=== PATIENT | female | born 1960 | race Caucasian/White ===

== ENCOUNTER 2021-09-07 13:24 | Emergency (ER) | payer BC ==
--- NOTE | 2021-09-07 14:25 | RAD REPORT ---
EXAM DESCRIPTION: RAD - Knee Left 3 View - 09/07/2021 2:17 pm CLINICAL HISTORY: PAIN COMPARISON: Knee Right 3 View dated 09/07/2021 FINDINGS: Moderate to large suprapatellar joint effusion is present. No acute fracture or dislocatio n is seen.
--- NOTE | 2021-09-07 14:28 | RAD REPORT ---
EXAM DESCRIPTION: RAD - Knee Right 3 View - 09/07/2021 2:18 pm CLINICAL HISTORY: PAIN COMPARISON: No comparisons FINDINGS: Small suprapatellar joint effusion is suspected. Mild arthritic changes without acute frac ture or dislocation evident.
--- NOTE | 2021-09-07 16:02 | ER ---
Nurse's Notes [facility] Name: Shwetha Hammonds Age: 61 yrs Sex: Female : 1960 Arrival Date: 09/07/2021 Time: 13:45 Bed 12 Private MD: Diagnosis: Unspecified internal derangement of left knee;Unspecified internal derangement of right knee Presentation: 09/07 13:55 Chief complaint: Patient states: climbing into truck Tuesday and heard pop to ll1 left knee, more painful to bend. Was trying to go to [facility] office but they told her to come here. Coronavirus screen: Vaccine status: Patient reports receiving the 2nd dose of the covid vaccine. At this time, the client does not indicate any symptoms associated with coronavirus-19. Ebola Screen: Patient negative for fever greater than or equal to 101.5 degrees Fahrenheit, and additional compatible Ebola Virus Disease symptoms Patient denies exposure to infectious person. Patient denies travel to an Ebola-affected area in the 21 days before illness onset. Initial Sepsis Screen: Does the patient meet any 2 criteria? No. Patient's initial sepsis screen is negative. Does the patient have a suspected source of infection? No. Patient's initial sepsis screen is negative. Risk Assessment: Do you want to hurt yourself or someone else? Patient reports no desire to harm self or others. 13:55 Method Of Arrival: Ambulatory ll1 13:55 Acuity: ENRIQUE 4 ll1 Triage Assessment: 13:58 General: Appears in no apparent distress. uncomfortable, slender, well groomed, well ll1 developed, Behavior is calm, cooperative, appropriate for age. Pain: Complains of pain in right and left knee. Historical: - Allergies: 13:57 PENICILLINS; ll1 13:57 Sulfa (Sulfonamide Antibiotics); ll1 13:57 Lidocaine; ll1 13:57 Iodine; ll1 - PMHx: 13:58 Hypertensive disorder; Hypercholesterolemia; Arthritis; ll1 - Immunization history:: Adult Immunizations up to date. - Social history:: Smoking status: Patient denies any tobacco usage or history of. Vital Signs: 13:55 BP 143 / 73; Pulse 69; Resp 16; Temp 97.6; Pulse Ox 100% ; Weight 61.23 kg; Height 5 ll1 ft. 4 in. (162.56 cm); Pain 8/10; 13:55 Body Mass Index 23.17 (61.23 kg, 162.56 cm) ll1 ED Course: 13:45 Patient arrived in ED. am2 13:57 Triage completed. ll1 13:58 Arm band placed on right wrist. ll1 14:01 Tong Camilo PA is PHCP. [facility] 14:01 Gilson Hillman MD is Attending Physician. jmm 14:16 XRAY Knee LEFT 3 view In Process Unspecified. EDMS 14:16 XRAY Knee RIGHT 3 view In Process Unspecified. EDMS 14:53 Brianda Cardona, RN is Primary Nurse. 5 16:00 Daniel Jaime MD is Referral Physician. [facility] Administered Medications: No medications were administered Outcome: 16:01 Discharge ordered by . [facility] 16:08 Patient left the ED. 5 Signatures: Dispatcher [employer] EDMO Tong Camilo PA PA Miya Quick am2 Fabiano Martell RN RN 1 Brianda Cardona, RN RN 5
--- NOTE | 2021-09-07 16:02 | EDPHYS ---
Physician Documentation [facility] Name: Shwetha Hammonds Age: 61 yrs Sex: Female : 1960 Arrival Date: 09/07/2021 Time: 13:45 Bed 12 Private MD: ED Physician Gilson Hillman HPI: 09/07 16:50 This 61 yrs old Female presents to ER via Ambulatory with complaints of Knee Pain. jmm 16:50 The patient presents with an injury. Onset: The symptoms/episode began/occurred jmm acutely, 2 day(s) ago. Modifying factors: The symptoms are alleviated by nothing. the symptoms are aggravated by weight bearing, bending knee. Associated signs and symptoms: Pertinent positives: swelling, Pertinent negatives calf tenderness, fever. This is a 61-year-old female with history of hypertension, hyperlipidemia, arthritis that presents emerged part with complaints of left knee pain and right knee pain after stepping out of her 's truck. Patient states she has more pain on the left than the right. Denies other known injury.. Historical: - Allergies: 13:57 PENICILLINS; ll1 13:57 Sulfa (Sulfonamide Antibiotics); ll1 13:57 Lidocaine; ll1 13:57 Iodine; ll1 - PMHx: 13:58 Hypertensive disorder; Hypercholesterolemia; Arthritis; ll1 - Immunization history:: Adult Immunizations up to date. - Social history:: Smoking status: Patient denies any tobacco usage or history of. ROS: 16:50 Constitutional: Negative for fever, chills, and weight loss, Cardiovascular: Negative jmm for chest pain, palpitations, and edema, Respiratory: Negative for shortness of breath, cough, wheezing, and pleuritic chest pain, Abdomen/GI: Negative for abdominal pain, nausea, vomiting, diarrhea, and constipation. 16:50 MS/extremity: Positive for pain. 16:50 All other systems are negative. Exam: 16:50 Constitutional: This is a well developed, well nourished patient who is awake, alert, jmm and in no acute distress. Head/Face: atraumatic. Eyes: EOMI, no conjunctival erythema appreciated ENT: Moist Mucus Membranes Neck: Trachea midline, Supple Chest/axilla: Normal chest wall appearance and motion. Cardiovascular: Regular rate and rhythm. No edema appreciated Respiratory: Normal respirations, no respiratory distress appreciated Abdomen/GI: Non distended, soft Back: Normal ROM Skin: General appearance color normal 16:50 Musculoskeletal/extremity: Swelling noted to the left and right knee, full range of motion appreciated bilaterally, compartments are soft, full dorsalis pedis pulses bilaterally, sensation intact, neurovascular intact. Vital Signs: 13:55 BP 143 / 73; Pulse 69; Resp 16; Temp 97.6; Pulse Ox 100% ; Weight 61.23 kg; Height 5 ll1 ft. 4 in. (162.56 cm); Pain 8/10; 13:55 Body Mass Index 23.17 (61.23 kg, 162.56 cm) ll1 MDM: 14:49 Patient medically screened. [facility] 16:50 Data reviewed: vital signs, nurses notes. Counseling: I had a detailed discussion with [facility] the patient and/or guardian regarding: the historical points, exam findings, and any diagnostic results supporting the discharge/admit diagnosis, radiology results, the need for outpatient follow up, to return to the emergency department if symptoms worsen or persist or if there are any questions or concerns that arise at home. 09/07 14:00 Order name: XRAY Knee LEFT 3 view; Complete Time: 14:47 ll1 09/07 14:00 Order name: XRAY Knee RIGHT 3 view; Complete Time: 14:47 ll1 09/07 14:48 Order name: Knee Immobilizer; Complete Time: 15:15 [facility] Administered Medications: No medications were administered Disposition: 17:23 Co-signature as Attending Physician, Gilson Hillman MD. rn Disposition Summary: 09/07/21 16:01 Discharge Ordered Location: Home [facility] Condition: Stable [facility] Diagnosis - Unspecified internal derangement of left knee jmm - Unspecified internal derangement of right knee [facility] Followup: [facility] - With: Daniel Jaime MD - When: 2 - 3 days - Reason: Recheck today's complaints, Continuance of care, Re-evaluation by your physician Discharge Instructions: - Discharge Summary Sheet [facility] - Acute Knee Pain, Adult [facility] Forms: - Medication Reconciliation Form [facility] - Thank You Letter [facility] - Antibiotic Education [facility] - Prescription Opioid Use [facility] Prescriptions: - orphenadrine citrate 100 mg Oral Tablet Sustained Release - take 1 tablet by ORAL route 2 times per day As needed; 20 tablet; Refills: 0, [facility] Product Selection Permitted Signatures: Dispatcher [employer] Tong Myles PA PA jmm Nieto, Roman, MD MD rn Fabiano Martell RN RN ll1
[2021-09-07 17:36] VITALS: BP 143/73; TEMP 97.6; O2SAT 100
== END 2021-09-07 16:08 | disposition home or self-care (01) ==
LOC: ER 13:24
DX: M23.92 Unspecified internal derangement of left knee (principal); M23.91 Unspecified internal derangement of right knee; I10 Essential (primary) hypertension; Z88.0 Allergy status to penicillin; Z88.2 Allergy status to sulfonamides; Z88.5 Allergy status to narcotic agent; Z91.048 Other nonmedicinal substance allergy status
CPT/HCPCS: 99282

== ENCOUNTER 2022-06-17 16:00 | Emergency (ER) | payer BC ==
--- OUTSIDE RECORDS SUMMARY | 2022-06-17 16:03 | XMS REPORT | Continuity of Care Document ---
:1960 Author Organization [facility] t Address [address] [place] [address] Dr. Hernandez [address] [place] [id number] Care Team Providers Name Role Phone Unavailable Unavailable Unavailable Problems This patient has no known problems. Allergies, Adverse Reactions, Alerts This patient has no known allergies or adverse reactions. Medications This patient has no known medications. Procedures This patient has no known procedures. Encounters Start End Encounter Admission Attending Care Care Encounter Source Date/Time Date/Time Type Type Clinicians Facility Department ID 2021-09-10 Outpatient [facility] [id number] Common 15:13:03 [facility] Results This patient has no known results.
[2022-06-17] MEDS ORDERED: ACETAMINOPHEN 325 MG TABLET ONE (16:22)
[2022-06-17 17:42] LABS: SARS-COV-2 RT PCR NEGATIVE (NEGATIVE)
[2022-06-17] MEDS ORDERED: OSELTAMIVIR 75 MG CAP ONE (17:56)
[2022-06-17] MEDS ORDERED: dexAMETHasone 10 MG/ML VIAL ONE (18:23)
--- NOTE | 2022-06-17 18:39 | RAD REPORT ---
EXAM DESCRIPTION: Chandu Single View06/17/2022 6:04 pm CLINICAL HISTORY: cough COMPARISON: 2020 FINDINGS: The lungs appear clear of acute infiltrate. The heart is normal size IMPRESSION: No acute abnormalities displayed
--- NOTE | 2022-06-17 19:13 | EDPHYS ---
Physician Documentation [facility] Name: Shwetha Hammonds Age: 62 yrs Sex: Female : 1960 Arrival Date: 06/17/2022 Time: 16:03 Bed 5 Private MD: ED Physician Feroz Avalos HPI: 06/17 16:11 This 62 yrs old Female presents to ER via Ambulatory with complaints of Flu Symptoms. jmm 16:11 The patient or guardian reports cough. Onset: The symptoms/episode began/occurred jmm gradually, 1 day(s) ago. Modifying factors: The symptoms are alleviated by nothing. the symptoms are aggravated by nothing. Associated signs and symptoms: Pertinent positives: sore throat. This is a 62-year-old female with history of hyperlipidemia, hypertension, diabetes mellitus, lupus that presents emerged part with complaints of sore throat, headache, fatigue symptoms worsened today. Patient states her blood pressure sandra to about 182 systolic and patient states she became dizzy. Denies chest pain or shortness of breath. Does have some cough. Patient states she did receive a flu vaccine this year. Historical: - Allergies: 16:11 Sulfa (Sulfonamide Antibiotics); ll1 16:11 PENICILLINS; ll1 16:11 Lidocaine; ll1 16:11 Iodine; ll1 16:11 novacaine; ll1 16:11 Flexeril; ll1 - PMHx: 16:11 Arthritis; Hypercholesterolemia; Hypertensive disorder; Diabetes mellitus; Lupus ll1 erythematosus; - PSHx: 16:11 hysterectomy; ll1 - Immunization history:: Client reports receiving the 2nd dose of the Covid vaccine, Flu vaccine is up to date. - Social history:: Smoking status: Patient denies any tobacco usage or history of. ROS: 16:11 Constitutional: Positive for body aches, chills, fatigue, fever. jmm 16:11 ENT: Positive for sore throat. 16:11 Respiratory: Positive for cough. 16:11 Neuro: Positive for dizziness, headache. 16:11 All other systems are negative. Exam: 16:11 Constitutional: This is a well developed, well nourished patient who is awake, alert, jmm and in no acute distress. Head/Face: atraumatic. Eyes: EOMI, no conjunctival erythema appreciated 16:11 Neck: Trachea midline, Supple Chest/axilla: Normal chest wall appearance and motion. Cardiovascular: Regular rate and rhythm. No edema appreciated Respiratory: Normal respirations, no respiratory distress appreciated Abdomen/GI: Non distended Back: Normal ROM Skin: General appearance color normal MS/ Extremity: Moves all extremities, no obvious deformities appreciated, no edema noted to the lower extremities Neuro: Awake and alert Psych: Behavior is normal, Mood is normal, Patient is cooperative and pleasant 16:11 ENT: Posterior pharynx: erythema, that is moderate. Vital Signs: 16:12 BP 131 / 83; Pulse 125; Resp 17; Temp 99.7(O); Pulse Ox 99% ; Weight 58.97 kg; Height 5 ll1 ft. 4 in. (162.56 cm); Pain 10/10; 16:28 BP 100 / 43; Pulse 118; Resp 18; Pulse Ox 100% on R/A; Pain 9/10; mb9 17:34 BP 128 / 72; Pulse 115; Resp 20 S; Temp 99.5(O); Pulse Ox 93% on R/A; aa5 17:57 BP 135 / 73; Pulse 106; Resp 18 S; Pulse Ox 93% on R/A; aa5 19:32 BP 124 / 67; Pulse 101; Resp 18; Temp 99.1; Pulse Ox 96% ; Pain 2/10; pf1 16:12 Body Mass Index 22.31 (58.97 kg, 162.56 cm) ll1 [place] Coma Score: 19:32 Eye Response: spontaneous(4). Verbal Response: oriented(5). Motor Response: obeys pf1 commands(6). Total: 15. MDM: 16:11 Patient medically screened. [facility] 19:12 Data reviewed: vital signs, nurses notes. Counseling: I had a detailed discussion with kilo the patient and/or guardian regarding: the historical points, exam findings, and any diagnostic results supporting the discharge/admit diagnosis, the need for outpatient follow up, to return to the emergency department if symptoms worsen or persist or if there are any questions or concerns that arise at home. 06/17 16:15 Order name: COVID-19/FLU A+B; Complete Time: 17:47 [facility] 06/17 16:15 Order name: Strep; Complete Time: 17:47 [facility] 06/17 17:38 Order name: Chest Single View XRAY; Complete Time: 18:43 ss 06/17 17:53 Order name: Throat Culture EDMS Administered Medications: 16:25 Drug: Acetaminophen 650 mg Route: PO; mb9 17:08 Follow up: Response: No adverse reaction mb9 17:57 Drug: Tamiflu (oseltamivir) 75 mg Route: PO; aa5 18:26 Follow up: Response: No adverse reaction aa5 18:25 Drug: Decadron (dexamethasone) 10 mg Route: IM; Site: left gluteus; aa5 Disposition Summary: 06/17/22 19:13 Discharge Ordered Location: Home jm Condition: Stable jm Diagnosis - Influenza [facility] Followup: [facility] - With: Private Physician - When: 2 - 3 days - Reason: Recheck today's complaints, Continuance of care, Re-evaluation by your physician Discharge Instructions: - Discharge Summary Sheet [facility] - Influenza, Adult [facility] Forms: - Medication Reconciliation Form [facility] - Thank You Letter [facility] - Antibiotic Education [facility] - Prescription Opioid Use [facility] Prescriptions: - Tamiflu 75 mg Oral Capsule - take 1 tablet by ORAL route every 12 hours for 5 days; 10 tablet; Refills: 0, [facility] Product Selection Permitted - promethazine-DM - take 5 milliliter by ORAL route every 4-6 hours As needed; 120 milliliter; [facility] Refills: 0, Product Selection Permitted Addendum: 06/19/2022 15:18 Co-signature as Attending Physician, Feroz Avalos DO I was immediately available on-site m s3 in the Emergency Department for consultation in the care of the patient. Signatures: Dispatcher [employer] EDMS Tong Camilo PA PA jmm Calderon, Audri, RN RN aa5 Fabiano Martell RN RN ll1 Feroz Avalos DO DO ms3 Angela Ramírez RN RN mb9
--- NOTE | 2022-06-17 19:13 | ER ---
Nurse's Notes [facility] Name: Shwetha Hammonds Age: 62 yrs Sex: Female : 1960 Arrival Date: 06/17/2022 Time: 16:03 Bed 5 Private MD: Diagnosis: Influenza Presentation: 06/17 16:12 Chief complaint: Patient states: Sore throat, SAVAGE, cough, dizzy, nausea, no appetite ll1 began yesterday. + fever at home. Coronavirus screen: Vaccine status: Patient reports receiving the 2nd dose of the covid vaccine. Client denies travel out of the [place] in the last 14 days. congestion, cough unrelated to allergies, fatigue, fever, headache, sore throat, Client presents with at least one sign or symptom that may indicate coronavirus-19. Standard/surgical mask placed on the client. Ebola Screen: Patient denies travel to an Ebola-affected area in the 21 days before illness onset. Initial Sepsis Screen: Does the patient meet any 2 criteria? HR > 90 bpm. No. Patient's initial sepsis screen is negative. Does the patient have a suspected source of infection? Yes: Productive cough/pneumonia. Risk Assessment: Do you want to hurt yourself or someone else? Patient reports no desire to harm self or others. Onset of symptoms was June 16, 2022. 16:12 Method Of Arrival: Ambulatory ll1 16:12 Acuity: ENRIQUE 3 ll1 Triage Assessment: 16:14 General: Appears uncomfortable, ill, Behavior is cooperative, appropriate for age. ll1 Pain: Complains of pain in head Pain currently is 10 out of 10 on a pain scale. Quality of pain is described as aching. Neuro: Reports dizziness, headache weakness. Respiratory: Reports cough that is. GI: Reports nausea. Historical: - Allergies: 16:11 Sulfa (Sulfonamide Antibiotics); ll1 16:11 PENICILLINS; ll1 16:11 Lidocaine; ll1 16:11 Iodine; ll1 16:11 novacaine; ll1 16:11 Flexeril; ll1 - PMHx: 16:11 Arthritis; Hypercholesterolemia; Hypertensive disorder; Diabetes mellitus; Lupus ll1 erythematosus; - PSHx: 16:11 hysterectomy; ll1 - Immunization history:: Client reports receiving the 2nd dose of the Covid vaccine, Flu vaccine is up to date. - Social history:: Smoking status: Patient denies any tobacco usage or history of. Screenin:28 Abuse screen: Denies threats or abuse. Nutritional screening: No deficits noted. mb9 Tuberculosis screening: No symptoms or risk factors identified. Fall Risk None identified. Assessment: 16:15 General: Appears uncomfortable, Behavior is calm, cooperative, appropriate for age. mb9 Pain: Complains of pain in head and throat Pain does not radiate. Pain currently is 9 out of 10 on a pain scale. Quality of pain is described as throbbing, Pain began 1 day ago. 16:15 Neuro: Smith Agitation-Sedation Scale (RASS): 0 - Alert and Calm Level of mb9 Consciousness is awake, alert, obeys commands, Oriented to person, place, time, situation, Appropriate for age. Cardiovascular: Heart tones S1 S2 present Rhythm is sinus tachycardia. Respiratory: Reports cough that is non-productive, Airway is patent Respiratory effort is even, unlabored, Respiratory pattern is regular, symmetrical, pt intermittently coughing Breath sounds are clear bilaterally. GI: Abdomen is flat, Bowel sounds present X 4 quads. Abd is soft and non tender X 4 quads. Reports nausea, Patient currently denies diarrhea, vomiting. : No signs and/or symptoms were reported regarding the genitourinary system. EENT: Oral mucosa is moist. Throat is pink. Derm: Skin is pink, warm \T\ dry. Musculoskeletal: Range of motion: intact in all extremities. 17:57 Reassessment: Patient is alert, oriented x 3, equal unlabored respirations, skin aa5 warm/dry/pink. Awaiting chest x-ray, pt notified of wait time. . 18:26 Reassessment: Patient is alert, oriented x 3, equal unlabored respirations, skin aa5 warm/dry/pink. Pt sitting up in bed, watching TV. Pt notified of wait time for chest x-ray results. . 19:15 Reassessment: Patient appears in no apparent distress at this time. Patient is alert, pf1 oriented x 3, equal unlabored respirations, skin warm/dry/pink. Patient states feeling better. Patient states symptoms have improved. Vital Signs: 16:12 BP 131 / 83; Pulse 125; Resp 17; Temp 99.7(O); Pulse Ox 99% ; Weight 58.97 kg; Height 5 ll1 ft. 4 in. (162.56 cm); Pain 10/10; 16:28 BP 100 / 43; Pulse 118; Resp 18; Pulse Ox 100% on R/A; Pain 9/10; mb9 17:34 BP 128 / 72; Pulse 115; Resp 20 S; Temp 99.5(O); Pulse Ox 93% on R/A; aa5 17:57 BP 135 / 73; Pulse 106; Resp 18 S; Pulse Ox 93% on R/A; aa5 19:32 BP 124 / 67; Pulse 101; Resp 18; Temp 99.1; Pulse Ox 96% ; Pain 2/10; pf1 16:12 Body Mass Index 22.31 (58.97 kg, 162.56 cm) ll1 [place] Coma Score: 19:32 Eye Response: spontaneous(4). Verbal Response: oriented(5). Motor Response: obeys pf1 commands(6). Total: 15. ED Course: 16:03 Patient arrived in ED. rg4 16:04 Tong Camilo PA is PHCP. [facility] 16:04 Feroz Avalos DO is Attending Physician. m 16:11 Arm band placed on Patient placed in an exam room, on a stretcher. ll1 16:14 Triage completed. 1 16:15 Angela Ramírez, LETY is Primary Nurse. mb9 16:25 COVID-19/FLU A+B Sent. mb9 16:25 Strep Sent. mb9 16:28 Placed in gown. Bed in low position. Call light in reach. Side rails up X 1. mb9 16:29 No provider procedures requiring assistance completed. mb9 18:05 Chest Single View XRAY In Process Unspecified. EDMS 19:04 Report given to Netta RN and LETY Storey. aa5 19:33 Patient did not have IV access during this emergency room visit. pf1 Administered Medications: 16:25 Drug: Acetaminophen 650 mg Route: PO; mb9 17:08 Follow up: Response: No adverse reaction mb9 17:57 Drug: Tamiflu (oseltamivir) 75 mg Route: PO; aa5 18:26 Follow up: Response: No adverse reaction aa5 18:25 Drug: Decadron (dexamethasone) 10 mg Route: IM; Site: left gluteus; aa5 Medication: 16:28 VIS not applicable for this client. mb9 Outcome: 19:13 Discharge ordered by . kilo 19:34 Discharged to home ambulatory, with significant other. pf1 19:34 Condition: improved 19:34 Discharge instructions given to patient, significant other, Instructed on discharge instructions, follow up and referral plans. medication usage, Demonstrated understanding of instructions, follow-up care, medications, Prescriptions given X 3. 19:35 Patient left the ED. pf1 Signatures: Dispatcher [employer] EDMS Tong Camilo PA PA jmm Calderon, Audri, RN RN aa5 Celsa Dolan4 Fabiano Martell RN RN ll1 Angela Ramírez, RN RN mb9 Julianna lopez RN RN pf1 Corrections: (The following items were deleted from the chart) 16:46 16:15 Respiratory: Reports cough that is non-productive, Airway is patent Respiratory mb9 effort is even, unlabored, Respiratory pattern is regular, symmetrical, Breath sounds are clear bilaterally. mb9
[2022-06-17 19:44] VITALS: BP 124/67; TEMP 99.1; O2SAT 96
== END 2022-06-17 19:35 | disposition home or self-care (01) ==
LOC: ER 16:00
DX: J11.1 Influenza due to unidentified influenza virus with other respiratory manifestations (principal); Z20.822 Contact with and (suspected) exposure to COVID-19; Z88.0 Allergy status to penicillin; Z88.2 Allergy status to sulfonamides; Z88.6 Allergy status to analgesic agent; Z88.8 Allergy status to other drugs, medicaments and biological substances; Z91.048 Other nonmedicinal substance allergy status
CPT/HCPCS: 87070; 87081; 0240U; 71045; 96372; 99284; J1100

== ENCOUNTER 2023-12-02 13:02 | Emergency (ER) | payer BC ==
--- OUTSIDE RECORDS SUMMARY | 2023-12-02 13:05 | XMS REPORT | Continuity of Care Document ---
Author Name Unknown Address [address] [place] [address] [employer] Address [address] [place] [address] [address] [place] [address] Care Team Providers Care Editing Clerk Name Role Phone [email or web address] Attending Clinician Unavaila ble [email or web address] Admitting Clinician Unavaila ble Payers Payer Name Policy Type Policy Number Effective Date Expirati on Date Source [place] [id number] 2023 00:00:00 Encounters Start Date/Time End Date/Time Encounter Type Admission Type Attending Clinicians Care Facility Care Department Encounter ID Source 2021-09-10 15:13:03 Outpatient [facility] [id number] [facility] 2023-08-24 00:00:00 2023-08-24 00:00:00 Outpatient [email or web address] PRIV PRIV [id number] [facility] 2023-08-19 00:00:00 2023-08-19 00:00:00 Outpatient [email or web address] PRIV PRIV [id number] [facility] 2023-08-16 00:00:00 2023-08-16 00:00:00 Outpatient [email or web address] PRIV PRIV [id number] [facility]
[2023-12-02 13:46] LABS: Absolute Eosinophils 0.1 K/uL (0-0.5); Absolute Lymphocytes (CBC) 1.1 K/uL (0.7-4.9); Absolute Monocytes 0.1 K/uL (0.1-1.3); Absolute Neutrophil 4.1 K/uL (1.8-8.0); Basophils % 0.6 % (0-1.3); Eosinophils % 2.1 % (0-4.4); Hematocrit 41.5 % (36.0-45.0); Lymphocytes % 20.8 % (15.3-44.8); MCH 29.5 pg (27.0-35.0); MCHC 33.7 g/dL (32.0-36.0); MCV 87.5 fL (80-100); MPV 9.3 fL (7.6-11.3); Monocytes % 2.4 % (3.3-12.3); Neutrophils % 74.1 % (41.7-73.7); Nucleated Red Blood Cells % 0.1 % (0-0); Platelets 202 thou/uL (152-406); RBC Red Blood Cell Count 4.74 M/uL (3.86-4.86); Red Cell Distribution Width 13.2 % (12.1-15.2)
[2023-12-02 13:47] LABS: PT Prothrombin Time 10.7 SECONDS (9.5-12.5); Protime INR 0.97
--- NOTE | 2023-12-02 13:48 | RAD REPORT ---
EXAM DESCRIPTION: CT - Head Brain Wo Cont - 12/02/2023 1:24 pm CLINICAL HISTORY: Blurred vision and dizziness COMPARISON: None TECHNIQUE: Computed axial tomography of the head was obtained. IV contrast was not requested. All CT scans are performed using dose optimization technique as appropriate and may include automated exposure control or mA/KV adjustment according to patient size. FINDINGS: An intracranial bleed is not seen The ventricles are normal in caliber No extra-axial fluid collection is noted. No significant hypodensity within the brain is seen Complete opacification right maxillary sinus may indicate sinusitis IMPRESSION: No acute intracranial abnormality is seen Right maxillary sinusitis If patient's symptoms persist MRI of the brain would be recommended
[2023-12-02] MEDS ORDERED: NA CHLORIDE 0.9% 1,000 ML ONE (14:00)
[2023-12-02] MEDS ORDERED: FOLIC ACID 5 MG/ML VIAL ONE (14:00)
[2023-12-02 14:04] LABS: Albumin 4.3 g/dL (3.4-5.0); Albumin/Globulin Ratio 1.2 (1.1-1.8); Bilirubin Direct 0.2 mg/dL (0-0.2); Bilirubin Indirect, Calculated 0.4 mg/dL (0.2-0.8); Bilirubin Total 0.6 mg/dL (0.2-1.0); Globulin 3.5 g/dL (2.3-3.5); Magnesium 2.2 mg/dL (1.6-2.4); Protein, Total 7.8 g/dL (6.4-8.2); Troponin High Sensitivity 20.8 pg/mL (<58.9)
--- NOTE | 2023-12-02 14:11 | RAD REPORT ---
EXAM DESCRIPTION: Chandu Single View12/02/2023 2:06 pm CLINICAL HISTORY: Cough COMPARISON: 2022 FINDINGS: Lungs are moderately hyperaerated The lungs appear clear of acute infiltrate. The heart is normal size IMPRESSION: No acute abnormalities displayed
[2023-12-02] MEDS ORDERED: CEFTRIAXONE 1000 MG/VIAL ONE (14:57)
[2023-12-02] MEDS ORDERED: ASPIRIN 81 MG CHEWABLE TABLET ONE (14:57)
[2023-12-02 15:03] LABS: Specific Gravity 1.008 (1.005-1.030); Sqamous Epithelial <5 /HPF (None Seen); Urine Bacteria <20 /HPF (<20); Urine Bilirubin NEGATIVE (Negative); Urine Blood Negative (Negative); Urine Clarity Turbid (Clear); Urine Color Colorless (Yellow); Urine Culture Reflex Order NOT NEEDED; Urine Glucose TRACE (Negative); Urine Ketones NEGATIVE (Negative); Urine Microscopic Reflex YN ORDER UMIC; Urine Mucus Slight /HPF (None Seen); Urine Nitrite NEGATIVE (Negative); Urine Protein NEGATIVE (Negative); Urine RBC <5 /HPF (None Seen); Urine Urobilinogen Normal (Normal); Urine WBC <5 /HPF (<5); Urine pH 6.5 (5.0-7.0)
--- NOTE | 2023-12-02 15:44 | RAD REPORT ---
EXAM DESCRIPTION: MRI - Brain Wo Cont - 12/02/2023 3:21 pm CLINICAL HISTORY: Blurred vision COMPARISON: Head CT December 02, 2023 TECHNIQUE: Axial, sagittal, and coronal magnetic resonance images of the brain were obtained. FINDINGS: A couple of very small areas increased signal are present within the deep white matter of the cerebrum bilaterally. These are nonspecific but may be related to ischemic changes secondary to s mall vessel disease Diffusion-weighted/ADC mapping does not reveal evidence of acute infarction. The ventricles are normal caliber. An extra-axial fluid collection is not noted. Right maxillary sinusitis IMPRESSION: No acute intracranial abnormality noted
--- NOTE | 2023-12-02 15:57 | RAD REPORT ---
EXAM DESCRIPTION: USCarotid Artery Bilateral12/02/2023 2:45 pm CLINICAL HISTORY: Blurred vision/dizziness COMPARISON: None FINDINGS: The velocity of the right internal carotid artery equals 107 cm/sec. The right ICA/CCA rat io normal The velocity of the left internal carotid artery equals 115 cm/sec. The left ICA/CCA ratio normal Mild plaque is present within the carotid arteries. The vertebral arteries demonstrate antegrade flow NASCET criteria used. Mild 0-49% stenosis Moderate 50-69% stenosis Severe 70-99% stenosis IMPRESSION: Mild plaque within the carotid arteries without evidence of a hemodynamically significan t stenosis
--- NOTE | 2023-12-02 16:07 | ER ---
Nurse's Notes [facility] Name: Shwetha Hammonds Age: 63 yrs Sex: Female : 1960 Arrival Date: 12/02/2023 Time: 13:02 Bed 16 Private MD: Diagnosis: Headache;Unspecified disorder of binocular vision Presentation: 12/01 13:35 Chief complaint: Sudden onset headache followed by brief total loss of vision in both hb eyes for approx 1 minute, now c/o blurred vision and headache 8/. Last known well 1230. Coronavirus screen: At this time, the client does not indicate any symptoms associated with coronavirus-19. Ebola Screen: No symptoms or risks identified at this time. Initial Sepsis Screen: Does the patient meet any 2 criteria? No. Patient's initial sepsis screen is negative. Does the patient have a suspected source of infection? No. Patient's initial sepsis screen is negative. Risk Assessment: Do you want to hurt yourself or someone else? Patient reports no desire to harm self or others. Onset of symptoms was December 02, 2023. 13:35 Method Of Arrival: Ambulatory hb 13:35 Acuity: ENRIQUE 2 hb 13:40 An acute neurological deficit is present. Pre-hospital glucose is not applicable to aa5 this patient. Triage Assessment: 13:40 Headache History: Denies prior headaches. General: Appears in no apparent distress. hb Behavior is calm, cooperative. Pain: Pain currently is 8 out of 10 on a pain scale. Pain began 1 hour ago. Also complains of dizziness. Neuro: Level of Consciousness is awake, alert, obeys commands, Oriented to person, place, time, situation. Cardiovascular: Patient's skin is warm and dry. Respiratory: Respiratory effort is even, unlabored, Respiratory pattern is regular, symmetrical. 16:56 The onset of the patients symptoms was December 02, 2023 at 13:00. me1 Stroke Activation: Symptom onset < 3 hours Physician: Stroke Attending; Name: ; Notified At: ; Arrived At: Physician: Chief Stroke Resident; Name: ; Notified At: ; Arrived At: Physician: Stroke Resident; Name: ; Notified At: ; Arrived At: Physician: ED Attending; Name: ; Notified At: ; Arrived At: Physician: ED Resident; Name: ; Notified At: ; Arrived At: Historical: - Allergies: 13:39 Flexeril; hb 13:39 Lidocaine; hb 13:39 NOVACAINE; hb 13:39 PENICILLINS; hb 13:39 Sulfa (Sulfonamide Antibiotics); hb 13:40 Iodine (Anaphylaxis); aa5 - PMHx: 13:39 Arthritis; diabetes mellitus; Hypercholesterolemia; Hypertensive disorder; Lupus hb erythematosus; - PSHx: 13:39 hysterectomy; hb - Immunization history:: Adult Immunizations up to date. - Infectious Disease History:: Denies. - Social history:: Smoking status: Patient denies any tobacco usage or history of. Screenin:40 [facility] ED Fall Risk Assessment (Adult) History of falling in the last 3 months, aa5 including since admission No falls in past 3 months (0 pts) Confusion or Disorientation No (0 pts) Intoxicated or Sedated No (0 pts) Impaired Gait No (0 pts) Mobility Assist Device Used No (0 pt) Altered Elimination No (0 pt) Score/Fall Risk Level 0 - 2 = Low Risk Oriented to surroundings, Maintained a safe environment, Educated pt \\T\\ family on fall prevention, incl call for assistance when getting out of bed. Abuse screen: Denies threats or abuse. Nutritional screening: No deficits noted. Tuberculosis screening: No symptoms or risk factors identified. 15:35 Mackenzie Swallow Protocol Brief Cognitive Screen What is your name? Normal, Where are you me1 right now? Normal, What year is it? Normal. Oral Mechanism Examination Facial Symmetry: Normal, Motion: Normal, Lip Closure: Normal, Oral Mechanism Result: Normal. 3 oz Water Swallow Challenge: Pt able to drink all water without stopping, coughing, choking or throat clearing: Yes Result: PASS Notified: Rodney Wray MD. Assessment: 13:39 Reassessment: CODE STROKE CALLED. PT TO CT. hb 13:40 General: Appears uncomfortable, Behavior is calm, cooperative. Pain: Complains of pain aa5 in right sabianism and left sabianism Pain currently is 6 out of 10 on a pain scale. Quality of pain is described as sharp, Pain began 1300 Is continuous. 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 Cardiovascular: Heart tones S1 S2 present Rhythm is regular. Respiratory: Airway is patent Respiratory effort is even, unlabored, Respiratory pattern is regular, symmetrical. GI: No signs and/or symptoms were reported involving the gastrointestinal system. : No signs and/or symptoms were reported regarding the genitourinary system. EENT: No signs and/or symptoms were reported regarding the EENT system. Derm: Skin is pink, warm \\T\\ dry. Musculoskeletal: Range of motion: intact in all extremities. 13:40 TNKase (Tenecteplase) Screening: Contraindications: Rapidly improving condition or aa5 minor deficit: Yes. 16:58 VAN Scoring: Arm Drift: Patients demonstrates NO arm weakness. Patient is VAN Negative. me1 Visual Disturbance: No visual disturbance noted. Aphasia: No aphasia noted. Neglect: No neglect noted. Vital Signs: 13:35 BP 146 / 86; Pulse 69; Resp 16; Temp 98.1; Pulse Ox 100% on R/A; Weight 58.06 kg; hb Height 5 ft. 4 in. ; Pain 8/10; 14:30 BP 132 / 73; Pulse 68; Resp 16; Pulse Ox 100% on R/A; me1 15:30 BP 126 / 66; Pulse 69; Resp 16; Pulse Ox 97% on R/A; me1 16:30 BP 104 / 62; Pulse 64; Resp 16; Pulse Ox 97% on R/A; me1 13:35 Body Mass Index 21.97 (58.06 kg, 162.56 cm) hb 13:35 Pain Scale: Adult hb [place] Coma Score: 14:53 Eye Response: spontaneous(4). Motor Response: obeys commands(6). Verbal Response: laine oriented(5). Total: 15. NIH Stroke Scale Scores: 13:40 NIHSS Score: 0 aa5 ED Course: 13:03 Patient arrived in ED. mg5 13:12 Rodney Wray MD is Attending Physician. laine 13:26 CT Head Brain wo Cont In Process Unspecified. EDMS 13:39 Triage completed. hb 13:39 Arm band placed on. hb 13:40 Patient has correct armband on for positive identification. Placed in gown. Bed in low aa5 position. Call light in reach. Side rails up X2. Client placed on continuous cardiac and pulse oximetry monitoring. NIBP monitoring applied. roof bolting coal miner on. Pulse ox on. NIBP on. 13:42 Initial lab(s) drawn, by me, sent to lab. EKG done, by ED staff, reviewed by Rodney Wray MD. Inserted saline lock: 20 gauge in left antecubital area, using aseptic technique. Blood collected. 13:52 Nely Smith RN is Primary Nurse. aa5 14:08 XRAY Chest (1 view) In Process Unspecified. EDMS 14:10 Report given to LETY Hightower. aa5 14:47 US Carotid Artery Bilateral In Process Unspecified. EDMS 14:54 Urinalysis w/ reflexes Sent. me1 14:59 Patient moved to MRI via wheelchair. me1 15:05 Urine collected: clean catch specimen, cloudy. me1 15:16 Brain Wo Cont In Process Unspecified. EDMS 16:04 Josué Santacruz MD is Referral Physician. [facility] 16:56 No provider procedures requiring assistance completed. me1 16:57 Provided Education on: poc. Verbalized understanding. . me1 16:57 IV discontinued, intact, bleeding controlled, No redness/swelling at site. Pressure me1 dressing applied. Administered Medications: 14:05 Drug: NS 0.9% IV 1000 ml IV at 1 bolus Per protocol; 1000 mL bolus Route: IV; Rate: 1 aa5 bolus; Site: left antecubital; 16:56 Follow up: Response: No adverse reaction; IV Status: Completed infusion me1 14:05 Drug: foLIC Acid IVPB 1 mg IVPB once Route: IVPB; Site: left antecubital; aa5 16:56 Follow up: Response: No adverse reaction; IV Status: Completed infusion me1 15:39 Drug: Rocephin IV 1 grams IV at per protocol once; Given slow IV push per pharmacy me1 instructions Route: IV; Rate: per protocol; Site: left antecubital; 15:42 Follow up: Response: No adverse reaction; IV Status: Completed infusion me1 16:56 Follow up: Response: No adverse reaction; IV Status: Completed infusion me1 15:39 Drug: Aspirin PO Chewable Tablet 162 mg PO once Route: PO; me1 16:56 Follow up: Response: No adverse reaction me1 Medication: 16:58 VIS not applicable for this client. me1 Point of Care Testin:58 n/a me1 Ranges: Outcome: 16:07 Discharge ordered by MD. laine 16:57 Discharged to home ambulatory, with significant other, [facility] 16:57 Condition: stable 16:57 Discharge instructions given to patient, significant other, Instructed on discharge instructions, follow up and referral plans. medication usage, Demonstrated understanding of instructions, follow-up care, medications, Prescriptions given X 2, 16:58 Patient left the ED. me1 NIH Stroke Scale - NIH Stroke Score Date: 12/02/2023 Time: 13:40 Total Score = 0 10. Dysarthria (speech clarity - read or repeat words) - 0(Normal) 11. Extinction and Inattention (visual/tactile/auditory/spatial/personal) - 0(No abnormality) 1a. Level of Consciousness (LOC) - 0(Alert) 1b. Level of Consciousness (LOC) (Month \\T\\ Age) - 0(Both) 1c. LOC Commands (Open \\T\\ Closes Eyes/Store Manager) - 0(Both) 2. Best Gaze (Lateral Gaze Paresis) - 0(Normal) 3. Visual Field Loss - 0(No visual loss) 4. Facial Palsy - 0(Normal) 5a. Left Arm: Motor (10-second hold) - 0(No drift) 5b. Right Arm: Motor (10-second hold) - 0(No drift) 6a. Left Leg: Motor (5-second hold - always test supine) - 0(No drift) 6b. Right Leg: Motor (5-second hold - always test supine) - 0(No drift) 7. Limb Ataxia (finger/nose \\T\\ heel/means - test with eyes open) - 0(Absent) 8. Sensory Loss (pinprick arms/legs/face) - 0(Normal) 9. Best Language: Aphasia (description/naming/reading) - 0(No aphasia) Initials: aa5 Signatures: Dispatcher [employer] Rodney Mattson MD MD cha Calderon, Audri, RN RN aa5 Mariella Tobar RN RN hb Carowatson, Breana 6 Katja Moss RN RN me1 Mayi Santiago mg5 Corrections: (The following items were deleted from the chart) 15:39 13:39 Allergies: Iodine; hb aa5
--- NOTE | 2023-12-02 16:08 | EDPHYS ---
Physician Documentation [facility] Name: Shwetha Hammonds Age: 63 yrs Sex: Female : 1960 Arrival Date: 12/02/2023 Time: 13:02 Bed 16 Private MD: ED Physician Rodney Wray HPI: 12/01 14:47 This 63 yrs old Female presents to ER via Ambulatory with complaints of laine Blurred Vision, Headache, Dizziness. Historical: - Allergies: 13:39 Flexeril; hb 13:39 Lidocaine; hb 13:39 NOVACAINE; hb 13:39 PENICILLINS; hb 13:39 Sulfa (Sulfonamide Antibiotics); hb 13:40 Iodine (Anaphylaxis); aa5 - PMHx: 13:39 Arthritis; diabetes mellitus; Hypercholesterolemia; Hypertensive disorder; Lupus hb erythematosus; - PSHx: 13:39 hysterectomy; hb - Immunization history:: Adult Immunizations up to date. - Infectious Disease History:: Denies. - Social history:: Smoking status: Patient denies any tobacco usage or history of. ROS: 14:48 Constitutional: Negative for fever, chills, and weight loss, ENT: Negative for injury, laine pain, and discharge, Neck: Negative for injury, pain, and swelling, Cardiovascular: Negative for chest pain, palpitations, and edema, Respiratory: Negative for shortness of breath, cough, wheezing, and pleuritic chest pain, Abdomen/GI: Negative for abdominal pain, nausea, vomiting, diarrhea, and constipation, Back: Negative for injury and pain, : Negative for injury, bleeding, discharge, and swelling, MS/Extremity: Negative for injury and deformity, Skin: Negative for injury, rash, and discoloration, Psych: Negative for depression, anxiety, suicide ideation, homicidal ideation, and hallucinations, Allergy/Immunology: Negative for hives, rash, and allergies, Endocrine: Negative for neck swelling, polydipsia, polyuria, polyphagia, and marked weight changes, Hematologic/Lymphatic: Negative for swollen nodes, abnormal bleeding, and unusual bruising, 14:48 Eyes: Positive for vision loss, 14:48 Neuro: Positive for headache, Exam: 14:48 Constitutional: This is a well developed, well nourished patient who is awake, alert, laine and in no acute distress. Head/Face: Normocephalic, atraumatic. Eyes: Pupils equal round and reactive to light, extra-ocular motions intact. Lids and lashes normal. Conjunctiva and sclera are non-icteric and not injected. Cornea within normal limits. Periorbital areas with no swelling, redness, or edema. ENT: Nares patent. No nasal discharge, no septal abnormalities noted. Tympanic membranes are normal and external auditory canals are clear. Oropharynx with no redness, swelling, or masses, exudates, or evidence of obstruction, uvula midline. Mucous membranes moist. Neck: Trachea midline, no thyromegaly or masses palpated, and no cervical lymphadenopathy. Supple, full range of motion without nuchal rigidity, or vertebral point tenderness. No Meningismus. Chest/axilla: Normal chest wall appearance and motion. Nontender with no deformity. No lesions are appreciated. Cardiovascular: Regular rate and rhythm with a normal S1 and S2. No gallops, murmurs, or rubs. Normal PMI, no JVD. No pulse deficits. Respiratory: Lungs have equal breath sounds bilaterally, clear to auscultation and percussion. No rales, rhonchi or wheezes noted. No increased work of breathing, no retractions or nasal flaring. Abdomen/GI: Soft, non-tender, with normal bowel sounds. No distension or tympany. No guarding or rebound. No evidence of tenderness throughout. Back: No spinal tenderness. No costovertebral tenderness. Full range of motion. Female : Normal external genitalia. Skin: Warm, dry with normal turgor. Normal color with no rashes, no lesions, and no evidence of cellulitis. MS/ Extremity: Pulses equal, no cyanosis. Neurovascular intact. Full, normal range of motion. Neuro: Awake and alert, GCS 15, oriented to person, place, time, and situation. Cranial nerves II-XII grossly intact. Motor strength 5/5 in all extremities. Sensory grossly intact. Cerebellar exam normal. Normal gait. Psych: Awake, alert, with orientation to person, place and time. Behavior, mood, and affect are within normal limits. 15:07 ECG was reviewed by the Attending Physician. [facility] Vital Signs: 13:35 BP 146 / 86; Pulse 69; Resp 16; Temp 98.1; Pulse Ox 100% on R/A; Weight 58.06 kg; hb Height 5 ft. 4 in. ; Pain 8/10; 14:30 BP 132 / 73; Pulse 68; Resp 16; Pulse Ox 100% on R/A; me1 15:30 BP 126 / 66; Pulse 69; Resp 16; Pulse Ox 97% on R/A; me1 16:30 BP 104 / 62; Pulse 64; Resp 16; Pulse Ox 97% on R/A; me1 13:35 Body Mass Index 21.97 (58.06 kg, 162.56 cm) hb 13:35 Pain Scale: Adult hb NIH Stroke Scale Scores: 13:40 NIHSS Score: 0 aa5 [place] Coma Score: 14:53 Eye Response: spontaneous(4). Motor Response: obeys commands(6). Verbal Response: laine oriented(5). Total: 15. MDM: 13:12 Patient medically screened. laine 14:53 Differential diagnosis: cluster headache, cerebral vascular accident, hypertensive laine headache, intracerebral hemorrhage, migraine, neoplasm, otitis, subarachnoid bleed, subdural hematoma, temporal arteritis, tension headache, trigeminal neuralgia, uremia. Data reviewed: vital signs, nurses notes, lab test result(s), radiologic studies, CT scan, MRI, plain films. Consideration of Admission/Observation Escalation of care including admission/observation considered. I considered the following discharge prescriptions or medication management in the emergency department Medications were administered in the Emergency Department. See MAR. Test considered but Not performed: CT: no cta head and neck. 16:09 ED course: DR SANTACRUZ , EXPLAINED CASE, MRI,USG , DC FOLLOW UP OUTPT, ASPIRIN DAILY. laine 12/01 13:13 Order name: Basic Metabolic Panel; Complete Time: 14:40 laine 12/01 13:13 Order name: CBC with Diff; Complete Time: 14:40 laine 12/01 13:13 Order name: LFT's; Complete Time: 14:40 laine 12/01 13:13 Order name: Magnesium; Complete Time: 14:40 laine 12/01 13:13 Order name: NT PRO-BNP; Complete Time: 14:40 laine 12/01 13:13 Order name: PT-INR; Complete Time: 14:02 laine 12/01 13:13 Order name: Troponin HS; Complete Time: 14:40 laine 12/01 13:13 Order name: Lipase; Complete Time: 14:40 laine 12/01 13:13 Order name: Urinalysis w/ reflexes; Complete Time: 15:05 [facility] 12/01 14:04 Order name: CRP [facility] 12/01 13:13 Order name: XRAY Chest (1 view); Complete Time: 14:40 [facility] 12/01 13:13 Order name: CT Head Brain wo Cont; Complete Time: 14:02 [facility] 12/01 14:02 Order name: US Carotid Artery Bilateral; Complete Time: 16:03 [facility] 12/01 15:13 Order name: Brain Wo Cont; Complete Time: 16:03 EDMS 12/01 13:13 Order name: EKG; Complete Time: 13:13 [facility] 12/01 13:13 Order name: Cardiac monitoring; Complete Time: 13:53 [facility] 12/01 13:13 Order name: EKG - Nurse/Tech; Complete Time: 13:42 [facility] 12/01 13:13 Order name: IV Saline Lock; Complete Time: 13:53 [facility] 12/01 13:13 Order name: Labs collected and sent; Complete Time: 13:42 [facility] 12/01 13:13 Order name: O2 Per Protocol; Complete Time: 13:42 [facility] 12/01 13:13 Order name: O2 Sat Monitoring; Complete Time: 13:42 [facility] EC:07 Rate is 69 beats/min. Rhythm is regular. QRS [place] is Normal. [place] interval is normal. QRS laine interval is normal. QT interval is normal. No Q waves. T waves are Normal. No ST changes noted. Clinical impression: NSR w/ Non-specific ST/T Changes and No evidence of ischemia. Interpreted by me. Reviewed by me. Administered Medications: 14:05 Drug: NS 0.9% IV 1000 ml IV at 1 bolus Per protocol; 1000 mL bolus Route: IV; Rate: 1 aa5 bolus; Site: left antecubital; 16:56 Follow up: Response: No adverse reaction; IV Status: Completed infusion me1 14:05 Drug: foLIC Acid IVPB 1 mg IVPB once Route: IVPB; Site: left antecubital; aa5 16:56 Follow up: Response: No adverse reaction; IV Status: Completed infusion me1 15:39 Drug: Rocephin IV 1 grams IV at per protocol once; Given slow IV push per pharmacy me1 instructions Route: IV; Rate: per protocol; Site: left antecubital; 15:42 Follow up: Response: No adverse reaction; IV Status: Completed infusion me1 16:56 Follow up: Response: No adverse reaction; IV Status: Completed infusion me1 15:39 Drug: Aspirin PO Chewable Tablet 162 mg PO once Route: PO; me1 16:56 Follow up: Response: No adverse reaction me1 Point of Care Testin:58 n/a me1 Ranges: Critical Glucose Levels:Adult <50 mg/dl or >400 mg/dl <40 mg/dl or >180 mg/dl Disposition Summary: 12/02/23 16:07 Discharge Ordered Notes: Location: Home laine Problem: new laine Symptoms: have improved laine Condition: Stable laine Diagnosis - Headache laine - Unspecified disorder of binocular vision laine Followup: laine - With: Private Physician - When: 2 - 3 days - Reason: Recheck today's complaints, Continuance of care, Re-evaluation by your physician Followup: laine - With: Josué Santacruz MD - When: 2 - 3 days - Reason: Recheck today's complaints, Re-evaluation by your physician Discharge Instructions: - Discharge Summary Sheet laine - Blurred Vision, Adult laine - General Headache Without Cause laine - Aspirin and Your Heart laine - General Headache Without Cause, [id number] [facility] Forms: - Medication Reconciliation Form laine - Antibiotic Education laine - Prescription Opioid Use laine - Patient Portal Instructions [facility] - Leadership Thank You Letter [facility] Prescriptions: - ondansetron 4 mg Oral Tablet,disintegrating - take 1 tablet ORAL route every 6-8 hours; 20 tablet; Refills: 0, Product [facility] Selection Permitted - Medrol ([place]) 4 mg Oral Tablets, Dose Pack - take 1 tablet ORAL route as directed - follow package instructions; 1 packet; [facility] Refills: 0, Product Selection Permitted NIH Stroke Scale - NIH Stroke Score Date: 12/02/2023 Time: 13:40 Total Score = 0 10. Dysarthria (speech clarity - read or repeat words) - 0(Normal) 11. Extinction and Inattention (visual/tactile/auditory/spatial/personal) - 0(No abnormality) 1a. Level of Consciousness (LOC) - 0(Alert) 1b. Level of Consciousness (LOC) (Month \T\ Age) - 0(Both) 1c. LOC Commands (Open \T\ Closes Eyes/Roaster Operator) - 0(Both) 2. Best Gaze (Lateral Gaze Paresis) - 0(Normal) 3. Visual Field Loss - 0(No visual loss) 4. Facial Palsy - 0(Normal) 5a. Left Arm: Motor (10-second hold) - 0(No drift) 5b. Right Arm: Motor (10-second hold) - 0(No drift) 6a. Left Leg: Motor (5-second hold - always test supine) - 0(No drift) 6b. Right Leg: Motor (5-second hold - always test supine) - 0(No drift) 7. Limb Ataxia (finger/nose \T\ heel/means - test with eyes open) - 0(Absent) 8. Sensory Loss (pinprick arms/legs/face) - 0(Normal) 9. Best Language: Aphasia (description/naming/reading) - 0(No aphasia) Initials: aa5 Signatures: Dispatcher [employer] EDMS Rodney Wray MD MD cha Calderon, Audri RN RN aa5 Mariella Tobar RN RN Katja Moss RN RN me1 Corrections: (The following items were deleted from the chart) 13:13 13:13 BASIC METABOLIC PANEL+C.LAB.BRZ ordered. EDMS EDMS 13:13 13:13 CBC+H.LAB.BRZ ordered. EDMS EDMS 13:13 13:13 HEPATIC FUNCTION+C.LAB.BRZ ordered. EDMS EDMS 13:13 13:13 MAGNESIUM+C.LAB.BRZ ordered. EDMS EDMS 13:13 13:13 PROBNP+C.LAB.BRZ ordered. EDMS EDMS 13:13 13:13 PROTIME (+INR)+COAG.LAB.BRZ ordered. EDMS EDMS 13:13 13:13 Troponin High Sensitivity+C.LAB.BRZ ordered. EDMS EDMS 13:13 13:13 LIPASE+C.LAB.BRZ ordered. EDMS EDMS 13:13 13:13 Urinalysis+U.LAB.BRZ ordered. EDMS EDMS 13:37 13:37 Head Angio+CT.RAD.BRZ ordered. EDMS EDMS 13:38 13:37 Neck Angio+CT.RAD.BRZ ordered. EDMS EDMS 14:02 14:02 Carotid Artery Bilateral+US.RAD.BRZ ordered. EDMS EDMS 14:02 14:02 MR STROKE PROTOCOL+MRI.RAD.BRZ ordered. EDMS EDMS 15:39 13:39 Allergies: Iodine; hb aa5
[2023-12-02 17:14] VITALS: BP 104/62; TEMP 98.1; O2SAT 97
--- NOTE | 2023-12-05 13:26 | EKG ---
Test Date: 2023-12-02 Test Time: 13:43:23 Supervisor Photostat: SHWETA MEASUREMENT RESULTS: Intervals: Rate: 69 MD: 160 QRSD: 88 QT: 438 QTc: 469 Dawson: P: 40 MD: 160 QRS: 41 T: 24 INTERPRETIVE STATEMENTS: Normal sinus rhythm Nonspecific ST abnormality Abnormal ECG No previous ECG available for comparison Electronically Signed On 12-05-23 13:18:49 CDT by Juliocesar Barragan
== END 2023-12-02 16:58 | disposition home or self-care (01) ==
LOC: ER 13:02
DX: R51.9 Headache, unspecified (principal); H53.30 Unspecified disorder of binocular vision; I10 Essential (primary) hypertension; Z88.0 Allergy status to penicillin; Z88.2 Allergy status to sulfonamides; Z88.4 Allergy status to anesthetic agent; Z88.5 Allergy status to narcotic agent; Z88.6 Allergy status to analgesic agent; Z91.048 Other nonmedicinal substance allergy status
CPT/HCPCS: 96365; 85025; 81001; 80048; 36415; 83735; 85610; 80076; 84484; 83690; 83880; 86140; 70450; 71045; 93880; 70551; 96375; 99285; 96366; J7030; J0696; 93005